=== PATIENT | male | born 1960 | race Caucasian/White ===

== ENCOUNTER 2023-03-09 18:51 | Emergency (ER) | payer BC ==
[2023-03-09 22:56] LABS: EOSINOPHILS ABSOLUTE AUTO 0.89 K/uL (0.00-0.40); EOSINOPHILS PERCENT AUTO 8.9 % (0.0-5.4); HEMATOCRIT 48.8 % (38.4-49.7); IMMATURE GRAN ABSOLUTE AUTO 0.07 K/uL (0.00-0.23); IMMATURE GRAN PERCENT AUTO 0.7 % (0.0-0.7); LYMPHOCYTES ABSOLUTE AUTO 2.21 K/uL (0.8-3.3); LYMPHOCYTES PERCENT AUTO 22.1 % (11.4-47.7); MEAN CORPUSCULAR HEMOGLOBIN 32.1 pg (31.6-35.5); MEAN CORPUSCULAR HGB CONC 34.8 g/dL (31.6-35.5); MEAN CORPUSCULAR VOLUME 92.1 fL (81.4-99.0); MONOCYTES ABSOLUTE AUTO 1.16 K/uL (0.20-0.90); MONOCYTES PERCENT AUTO 11.6 % (3.3-12.6); NEUTROPHILS ABSOLUTE AUTO 5.58 K/uL (1.0-7.6); NEUTROPHILS PERCENT AUTO 55.7 % (40.0-78.1); PLATELET COUNT,PLT 241 K/uL (130-375)
[2023-03-09 23:13] LABS: C-REACTIVE PROTEIN 1.46 mg/dL (0.0-0.3); EST CRCL DRUG DOSING (CG) 81.91 mL/min; POTASSIUM,K 3.9 mmol/L (3.6-5.2)
[2023-03-09 23:16] LABS: ANION GAP 14.9 mmol/L (5.0-14.0)
== END 2023-03-09 23:58 | disposition home or self-care (01) ==
LOC: JP.ED 18:51
DX: J45.901 Unspecified asthma with (acute) exacerbation (principal); I10 Essential (primary) hypertension; Z20.822 Contact with and (suspected) exposure to COVID-19; Z79.899 Other long term (current) drug therapy; Z91.048 Other nonmedicinal substance allergy status
CPT/HCPCS: 36415; 71046; 71046-26; 80048; 85025; 86140; 99285; U0002